=== PATIENT | male | born 1990 | race African-American/Black ===

== ENCOUNTER 2019-07-06 01:45 | Emergency (ER) | payer MEDICAID ==
[~2019-07-06] VITALS: Ht 185.4 cm; Wt 113.4 kg
[2019-07-06 01:54] VITALS: BP 145/76
--- NOTE | 2019-07-06 01:54 | NUR ---
TO BED # 12 AMBULATORY
--- NOTE | 2019-07-06 01:54 | NUR ---
28 Y/O MALE PRESENTS TO ED WITH C/O ASTHMA EXACERBATION X30 MIN. HE IS OUT OF HOME MEDS. WOKE UP WITH SOB/DYPSNEA AND PAIN WITH COUGH. COUGH NON-PRODUCTIVE. 4/10 PAIN. BILAT UPPER LOBES DIMINISHED. RIGHT UPPER LOBE EXPIRATORY WHEEZING. NO RESPIRATORY DISTRESS AT THIS TIME. PT STATES HE FEEL BETTER SINCE HE ARRIVED TO THE ER. 02SAT 95% @RA. RR 12. VSS. NO DIFFICULTY WITH SPEECH. ALERT TO NAME, PLACE, TIME AND EVENT. ER MD AWARE. POSITIONED IN BED WITH HOB IN HIGHEST POSITOIN. X1 SIDE RAIL UP. CONTINUE TO MONITOR.
[2019-07-06] MEDS ORDERED: ALBUTEROL SULFATE/IPRATROPIU 3 ML SOL IH ONE (02:25)
[2019-07-06] MEDS ORDERED: predniSONE 20 MG TAB PO ONE (02:40)
--- NOTE | 2019-07-06 03:02 | NUR ---
X-Ray at bedside.
[2019-07-06 03:38] VITALS: BP 132/66
--- NOTE | 2019-07-06 03:38 | NUR ---
DISCHARGE PAPERS GIVEN TO PT. NO C/O SOB/DYSPNEA. LUNGS CLEAR BILAT THROUGHOUT. RX OF ALBUTEROL AND PREDNISONE GIVEN. SIDE EFFECTS EXPLAINED. PROVIDED WITH MEDICATION DISCOUNT CARD. ISNTRUCTED TO F/U WITH A PCP WHEN AVAILABLE AND WHEN TO RETURN TO ER. PT VERBALIZED UNDERSTANDING OF DC ISNTRUCTOINS. ALL QUESTIONS ANSWERED.
== END 2019-07-06 03:38 | disposition home or self-care (01) ==
LOC: MED 01:45
DX: J45.901 Unspecified asthma with (acute) exacerbation (principal); F12.10 Cannabis abuse, uncomplicated; Z71.6 Tobacco abuse counseling
CPT/HCPCS: 71045; 94640; 99283; J7512; J7620; Q0092